=== PATIENT | male | born 1960 ===

== ENCOUNTER 2023-12-05 20:04 | Emergency (ER) | payer OTHER ==
[2023-12-05] MEDS: predniSONE 20 MG Tab PO SCH (21:59)
[2023-12-05] MEDS: predniSONE 20 MG Tab ONE (22:10)
== END 2023-12-05 22:13 | disposition home or self-care (01) ==
LOC: KA.ED 20:04 → SUPCPDRO 20:04 → KA.ED 22:13
DX: M53.3 Sacrococcygeal disorders, not elsewhere classified (principal); M54.10 Radiculopathy, site unspecified; I10 Essential (primary) hypertension; Z79.899 Other long term (current) drug therapy
CPT/HCPCS: 36415; 85379; 99283; 99284; J7512